=== PATIENT | female | born 1970 | race Caucasian/White ===

== ENCOUNTER 2025-01-18 08:08 | Day surgery (SDC) | payer OTHER ==
[~2025-01-18] VITALS: Ht 233.7 cm; Wt 68.2 kg
[~2025-01-18 08:08] MED LIST: ATOR40TA28 PO; PREN1TAB22 PO; TIRZ2.5P3
[2025-01-18] MEDS: SODIUM CHLORIDE 0.9% 1,000 ML IV ONE (08:44)
[2025-01-18] MEDS ORDERED: GLYCOPYRROLATE 0.2 MG/ML VIAL ONE (12:00)
[2025-01-18] MEDS ORDERED: PROPOFOL 1% 20 ML VIAL IVP ONE (12:00)
== END 2025-01-18 12:35 | disposition home or self-care (01) ==
LOC: SURGERY 08:08
PROVIDERS: ATTEND Internal Medicine
DX: R19.5 Other fecal abnormalities (principal); D12.3 Benign neoplasm of transverse colon; K64.8 Other hemorrhoids; Z79.899 Other long term (current) drug therapy; Z98.890 Other specified postprocedural states
CPT/HCPCS: 45385; 88305; J2704; J3490